=== PATIENT | male | born 2000 | race Caucasian/White ===

== ENCOUNTER 2019-02-04 15:59 | Emergency (ER) | payer BC ==
[2019-02-04 16:58] VITALS: BP 120/56
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
== END 2019-02-04 18:01 | disposition home or self-care (01) ==
LOC: UCCORT 15:59
DX: S62.501A Fracture of unspecified phalanx of right thumb, initial encounter for closed fracture (principal); X50.0XXA Overexertion from strenuous movement or load, initial encounter; Y92.9 Unspecified place or not applicable
CPT/HCPCS: 99202; G0463